=== PATIENT | male | born 2000 | race Caucasian/White ===

== ENCOUNTER 2019-01-18 21:59 | Emergency (ER) | payer SELFPAY ==
[~2019-01-18] VITALS: Ht 190.5 cm; Wt 97.7 kg
[2019-01-18 22:30] VITALS: BP 130/77
[2019-01-18] MEDS ORDERED: DEXAMETHASONE SOD PHOS 4 MG/ML 5 ML VIAL IM ONE (22:30)
[2019-01-18] MEDS ORDERED: PENICILLIN G BENZATHINE LA 1,200,000 UNITS/2 ML SYRINGE IM ONE (22:30)
== END 2019-01-18 22:56 | disposition home or self-care (01) ==
LOC: EMS 22:05
DX: J02.0 Streptococcal pharyngitis (principal); F17.210 Nicotine dependence, cigarettes, uncomplicated
CPT/HCPCS: 96372; 99283; 99406; J0561; J1100